=== PATIENT | female | born 1995 | race Hispanic/Latino ===

== ENCOUNTER 2022-01-27 19:59 | Day surgery (SDC) | payer MEDICAID, OTHER ==
[2022-01-27] MEDS ORDERED: hydrALAZINE 20 MG/ML VIAL SLOW IVP PRN (20:42)
[2022-01-27 21:11] VITALS: BMI 30.2
[2022-01-27 22:02] LABS: #Basophils 0.1 10x3/uL (0.0-0.2); #Eosinphils 0.3 10x3/uL (0.0-0.5); #Monocytes 0.6 10x3/uL (0.0-1.1); #Neutrophils 6.3 10x3/uL (1.5-8.4); %Basophils 0.7 % (0.0-2.0); %Eosinophils 2.6 % (0.0-6.0); %Lymphocytes 31.2 % (18.0-47.0); %Monocytes 5.4 % (0.0-10.0); %Neutrophils 59.8 % (40.0-75.0); Hemoglobin 12.1 g/dL (12.0-15.5); Mean Corpuscular HGB CONC 35.1 g/dL (32.0-36.0); Mean Corpuscular Hemoglobin 29.8 pg (27.0-33.0); Mean Platelet Volume 9.2 fl (7.4-10.4); Platelet Count 378 10x3/uL (150-450); Red Blood Cell (RBC) Count 4.06 10x6/uL (3.90-5.03); White Blood Cell (WBC) Count 10.5 10x3/uL (3.5-10.5)
== END 2022-01-28 00:22 | disposition home or self-care (01) ==
LOC: CSHLD/OP 19:59
PROVIDERS: ATTEND Student in an Organized Health Care Education/Training Program
DX: O02.1 Missed abortion (principal); O08.1 Delayed or excessive hemorrhage following ectopic and molar pregnancy; O09.211 Supervision of pregnancy with history of pre-term labor, first trimester; Z3A.12 12 weeks gestation of pregnancy
CPT/HCPCS: 76856; 84702; 85025; 86850; 86900; 86901

== ENCOUNTER 2022-01-28 15:17 | Observation (INO) | payer MEDICAID, OTHER, SELFPAY ==
[2022-01-28] MEDS ORDERED: Ondansetron PF 4 MG/2 ML Vial ONE (15:57)
[2022-01-28] MEDS ORDERED: Misoprostol 200 MCG TAB ONE (16:17)
[2022-01-28 16:29] LABS: #Basophils 0.1 10x3/uL (0.0-0.2); #Eosinphils 0.3 10x3/uL (0.0-0.5); #Monocytes 0.5 10x3/uL (0.0-1.1); #Neutrophils 7.8 10x3/uL (1.5-8.4); %Basophils 0.6 % (0.0-2.0); %Eosinophils 2.3 % (0.0-6.0); %Lymphocytes 19.2 % (18.0-47.0); %Monocytes 4.7 % (0.0-10.0); %Neutrophils 72.8 % (40.0-75.0); Hemoglobin 12.2 g/dL (12.0-15.5); Mean Corpuscular HGB CONC 35.4 g/dL (32.0-36.0); Mean Corpuscular Hemoglobin 30.2 pg (27.0-33.0); Mean Corpuscular Volume 85.4 fl (81.6-98.3); Mean Platelet Volume 9.5 fl (7.4-10.4); Platelet Count 373 10x3/uL (150-450); RBC Distribution Width 12.3 % (11.5-14.5); Red Blood Cell (RBC) Count 4.04 10x6/uL (3.90-5.03); White Blood Cell (WBC) Count 10.8 10x3/uL (3.5-10.5)
[2022-01-28 18:54] LABS: Hemoglobin 9.9 g/dL (12.0-15.5)
[2022-01-28] MEDS ORDERED: Ibuprofen 400 MG TAB PO PRN (20:26)
[2022-01-28] MEDS ORDERED: Misoprostol 200 MCG TAB PO SCH (21:30)
[2022-01-28 21:45] VITALS: BMI 28.3
[2022-01-28] MEDS: Lactated Ringer's 1,000 ML IV SCH (22:00)
[2022-01-29] MEDS: Misoprostol 200 MCG TAB PO SCH ×5 (01:18→18:51)
[2022-01-29 04:53] LABS: #Eosinphils 0.2 10x3/uL (0.0-0.5); #Monocytes 0.4 10x3/uL (0.0-1.1); #Neutrophils 5.3 10x3/uL (1.5-8.4); %Basophils 0.5 % (0.0-2.0); %Eosinophils 2.6 % (0.0-6.0); %Lymphocytes 30.4 % (18.0-47.0); %Monocytes 4.9 % (0.0-10.0); %Neutrophils 61.3 % (40.0-75.0); Hemoglobin 9.3 g/dL (12.0-15.5); Mean Corpuscular HGB CONC 35.4 g/dL (32.0-36.0); Mean Corpuscular Hemoglobin 30.7 pg (27.0-33.0); Mean Corpuscular Volume 86.8 fl (81.6-98.3); Mean Platelet Volume 9.1 fl (7.4-10.4); Platelet Count 297 10x3/uL (150-450); RBC Distribution Width 12.4 % (11.5-14.5); Red Blood Cell (RBC) Count 3.03 10x6/uL (3.90-5.03); White Blood Cell (WBC) Count 8.6 10x3/uL (3.5-10.5)
[2022-01-29] MEDS: Lactated Ringer's 1,000 ML IV SCH ×2 (05:32→14:04)
[2022-01-29] MEDS: HYDROcodone/Acetaminophen 5/325 mg Tablet PO PRN ×2 (05:35→18:55)
[2022-01-29 16:29] LABS: Hemoglobin 10.7 g/dL (12.0-15.5)
[2022-01-30 00:48] VITALS: BP 112/59; TEMP 98.4
== END 2022-01-29 23:08 | disposition home or self-care (01) ==
LOC: CSHERS 15:17 → CSHPP 21:22
PROVIDERS: ADMIT Obstetrics & Gynecology; ATTEND Obstetrics & Gynecology
DX: I95.9 Hypotension, unspecified (principal); D62 Acute posthemorrhagic anemia
CPT/HCPCS: 36415; 36430; 84702; 85025; 86850; 86900; 86901; 99284; G0378; J2405; J7120; P9016